=== PATIENT | male | born 1990 | race Caucasian/White ===

== ENCOUNTER 2017-03-16 16:29 | Emergency (ER) | payer OTHER ==
[~2017-03-16] VITALS: Ht 177.8 cm; Wt 71.0 kg
[2017-03-16 16:32] VITALS: Ht 177.8 cm; Wt 71.0 kg
[2017-03-16] MEDS ORDERED: SODIUM CHLORIDE 0.9% 1000ML 1,000 ML IV STA (16:37)
--- NOTE | 2017-03-16 17:01 | DIAGNOSTIC IMAGING REPORT ---
SINGLE VIEW CHEST CLINICAL HISTORY: Weakness. Change in mental status. FINDINGS: An AP, portable, upright chest radiograph is obtained. No prior studies are available for comparison at the time of dictation. The examination is degraded by portable technique, apical lordotic positioning, motion artifact, and patient rotation. The cardiomediastinal silhouette is unremarkable. An accessory azygous fissure is incidentally noted. The lungs and pleural spaces are clear. No pneumothorax is seen. The bony thorax is grossly intact. IMPRESSION: No acute cardiopulmonary abnormality noting a degraded examination. Electronically signed by: Luciano Montemayor M.D. 03/16/2017 4:59 PM Dictated Date/Time: 03/16/2017 4:58 PM
[2017-03-16] MEDS ORDERED: LEVE500T13 PO (17:22)
[2017-03-16] MEDS ORDERED: MIRT15TA2 PO (17:22)
[2017-03-16] MEDS ORDERED: GABA600T PO (17:22)
[2017-03-16 17:26] LABS: BASO % 0.4 %; BASO ABS # 0.04 K/uL (0-0.2); COMPLETE YES; EOS % 1.7 %; HEMATOCRIT 45.7 % (42-52); LYMPH % 16.4 %; LYMPH ABS # 1.46 K/uL (1.2-3.4); MEAN CELL VOLUME 94.2 fL (80-100); MEAN CORPUSCULAR HEMOGLOBIN 32.6 pg (25-34); MEAN CORPUSCULAR HGB CONC 34.6 g/dl (32-36); MEAN PLATELET VOLUME 9.6 fL (7.4-10.4); MONO % 5.6 %; NEUT % 74.9 %; PLATELET COUNT 245 K/uL (130-400); RED BLOOD COUNT 4.85 M/uL (4.7-6.1)
--- NOTE | 2017-03-16 17:26 | DIAGNOSTIC IMAGING REPORT ---
HEAD WITHOUT CONTRAST (CT) CLINICAL HISTORY: 26 years-old Male with EVALUATE ALTERED MENTAL STATUS/WEAKNESS. Acute confusion TECHNIQUE: Multiple axial CT images of the head were obtained without contrast. A dose lowering technique was utilized adhering to the principles of ALARA. CT DOSE: 537.48 mGy.cm COMPARISON: None. FINDINGS: No acute intracranial hemorrhage, midline shift, mass, large territorial ischemia or abnormal extra-axial collection. The calvarium is intact. The paranasal sinuses, mastoid air cells, and middle ear cavities are clear. IMPRESSION: No acute intracranial abnormality. The above report was generated using voice recognition software. It may contain grammatical, syntax or spelling errors. Electronically signed by: Morgan Rodriguez M.D. 03/16/2017 5:25 PM Dictated Date/Time: 03/16/2017 5:22 PM
[2017-03-16 17:33] LABS: PARTIAL THROMBOPLASTIN RATIO 0.9; PROTHROMBIN TIME (PATIENT) 10.9 SECONDS (9.0-12.0)
[2017-03-16 17:51] LABS: ALT/SGPT 42 U/L (12-78); AST/SGOT 24 U/L (15-37); BLOOD UREA NITROGEN 11 mg/dl (7-18); BUN/CREATININE RATIO 11.8 (10-20); CALCIUM 9.2 mg/dl (8.5-10.1); CARBON DIOXIDE 27 mmol/L (21-32); CHLORIDE 104 mmol/L (98-107); CREATININE 0.92 mg/dl (0.60-1.40); GLUCOSE 83 mg/dl (70-99); MAGNESIUM 2.4 mg/dl (1.8-2.4); POTASSIUM 3.6 mmol/L (3.5-5.1); SODIUM 137 mmol/L (136-145)
[2017-03-16 17:52] LABS: URINE APPEARANCE CLEAR (CLEAR); URINE BILIRUBIN NEG (NEG); URINE COLOR YELLOW; URINE EPITHELIAL CELL AUTO 0-5 /lpf (0-5); URINE NITRITE NEG (NEG); URINE SPECIFIC GRAVITY 1.022 (1.000-1.030); UROBILINOGEN NEG (NEG); ZZUR CULT IF INDIC CLEAN CATCH NO
[2017-03-16 17:53] LABS: MANUAL MICROSCOPIC REQUIRED? NO; REVIEW REQ? NO
[2017-03-16 17:59] LABS: ALKALINE PHOSPHATASE 152 U/L (45-117); CKMB/CK RATIO 0.5 (0-3.0)
--- NOTE | 2017-03-16 18:06 | EMERGENCY ROOM VISIT NOTE ---
History Report prepared by Russellibchristopher: Dc Peters Under the Supervision of: Dr. Pako Crawley D.O. First contact with patient: 16:36 Chief Complaint: ILLNESS Stated Complaint: DONT FEEL RIGHT - CONFUSION - SEIZURES History of Present Illness The patient is a 26 year old male who presents to the Emergency Room with complaints of an episode of confusion occurring shortly prior to arrival. His symptoms began after returning home from work. Per father, the patient had an episode of confusion where he did not know where he was or who he was talking to. He states that the patient has been reserved recently, and has spent a lot of time alone in his room. The patient states that his symptoms have resolved and he currently feels normal. He denies nausea, vomiting, fevers, or cold-like symptoms. He is on Keppra and Gabapentin for seizures. The patient had no witnessed seizure-like activity, but he was alone prior to his episode of confusion. He does not believe he had a seizure, because he feels that he remembers more than he normally would following a seizure. Source of History: patient Onset: Shortly prior to arrival Quality: other (confusion) Timing: other (episode) Associated Symptoms: No fevers, No nausea, No vomiting Review of Systems See HPI for pertinent positives & negatives. A total of 10 systems reviewed and were otherwise negative. Past Medical & Surgical Medical Problems: (1) Seizure Family History No pertinent family history stated. Social History Smoking Status: Current Every Day Smoker Housing Status: lives with family Occupation Status: employed Current/Historical Medications Scheduled Gabapentin (Neurontin), 600 MG PO BID Levetiracetam (Keppra), 500 MG PO BID Mirtazapine Soltab (Remeron Soltab), 15 MG PO HS Allergies Coded Allergies: No Known Allergies (Unverified , 03/16/17) Physical Exam Vital Signs Date Time Temp Pulse Resp B/P (MAP) Pulse Ox O2 Delivery O2 Flow Rate FiO2 03/16/17 18:04 102 03/16/17 16:32 37.1 99 18 133/75 97 Room Air Physical Exam CONSTITUTIONAL/VITAL SIGNS: Reviewed / noted above. GENERAL: Non-toxic in appearance. INTEGUMENTARY: Warm, dry, and [place]. HEAD: Normocephalic. EYES: without scleral icterus or trauma. ENT/OROPHARYNX: clear and moist. LYMPHADENOPATHY/NECK: Is supple without lymphadenopathy or meningismus. RESPIRATORY: Lungs clear and equal. CARDIOVASCULAR: Regular rate and rhythm. GI/ABDOMEN: Soft and nontender. No organomegaly or pulsatile mass. No rebound or guarding. Normal bowel sounds. EXTREMITIES: Warm and well perfused. BACK: No CVA tenderness. NEUROLOGICAL: Intact without focal deficits. PSYCHIATRIC: normal affect. MUSCULOSKELETAL: Normally developed with good muscle tone. Medical Decision & Procedures ER Provider Diagnostic Interpretation: Radiology results as stated below per my review and radiologist interpretation: HEAD WITHOUT CONTRAST (CT) FINDINGS: No acute intracranial hemorrhage, midline shift, mass, large territorial ischemia or abnormal extra-axial collection. The calvarium is intact. The paranasal sinuses, mastoid air cells, and middle ear cavities are clear. IMPRESSION: No acute intracranial abnormality. The above report was generated using voice recognition software. It may contain grammatical, syntax or spelling errors. Electronically signed by: Morgan Rodriguez M.D. 03/16/2017 5:25 PM SINGLE VIEW CHEST FINDINGS: An AP, portable, upright chest radiograph is obtained. No prior studies are available for comparison at the time of dictation. The examination is degraded by portable technique, apical lordotic positioning, motion artifact, and patient rotation. The cardiomediastinal silhouette is unremarkable. An accessory azygous fissure is incidentally noted. The lungs and pleural spaces are clear. No pneumothorax is seen. The bony thorax is grossly intact. IMPRESSION: No acute cardiopulmonary abnormality noting a degraded examination. Electronically signed by: Luciano Montemayor M.D. 03/16/2017 4:59 PM Laboratory Results 03/16/17 17:09 Red Blood Count 4.85, Mean Corpuscular Volume 94.2, Mean Corpuscular Hemoglobin 32.6, Mean Corpuscular Hemoglobin Concent 34.6, Mean Platelet Volume 9.6, Neutrophils (%) (Auto) 74.9, Lymphocytes (%) (Auto) 16.4, Monocytes (%) (Auto) 5.6, Eosinophils (%) (Auto) 1.7, Basophils (%) (Auto) 0.4, Neutrophils # (Auto) 6.66, Lymphocytes # (Auto) 1.46, Monocytes # (Auto) 0.50, Eosinophils # (Auto) 0.15, Basophils # (Auto) 0.04 03/16/17 17:09 Test 03/16/17 17:09 03/16/17 17:29 White Blood Count 8.90 K/uL (4.8-10.8) Red Blood Count 4.85 M/uL (4.7-6.1) Hemoglobin 15.8 g/dL (14.0-18.0) Hematocrit 45.7 % (42-52) Mean Corpuscular Volume 94.2 fL (80-100) Mean Corpuscular Hemoglobin 32.6 pg (25-34) Mean Corpuscular Hemoglobin Concent 34.6 g/dl (32-36) Platelet Count 245 K/uL (130-400) Mean Platelet Volume 9.6 fL (7.4-10.4) Neutrophils (%) (Auto) 74.9 % Lymphocytes (%) (Auto) 16.4 % Monocytes (%) (Auto) 5.6 % Eosinophils (%) (Auto) 1.7 % Basophils (%) (Auto) 0.4 % Neutrophils # (Auto) 6.66 K/uL (1.4-6.5) Lymphocytes # (Auto) 1.46 K/uL (1.2-3.4) Monocytes # (Auto) 0.50 K/uL (0.11-0.59) Eosinophils # (Auto) 0.15 K/uL (0-0.5) Basophils # (Auto) 0.04 K/uL (0-0.2) RDW Standard Deviation 45.7 fL (36.4-46.3) RDW Coefficient of Variation 13.2 % (11.5-14.5) Immature Granulocyte % (Auto) 1.0 % Immature Granulocyte # (Auto) 0.09 K/uL (0.00-0.02) Prothrombin Time 10.9 SECONDS (9.0-12.0) Prothromb Time International Ratio 1.0 (0.9-1.1) Activated Partial Thromboplast Time 23.1 SECONDS (21.0-31.0) Partial Thromboplastin Ratio 0.9 Anion Gap 6.0 mmol/L (3-11) Est Creatinine Clear Calc Drug Dose 121.1 ml/min Estimated GFR () 131.6 Estimated GFR (Non- 113.6 BUN/Creatinine Ratio 11.8 (10-20) Calcium Level 9.2 mg/dl (8.5-10.1) Magnesium Level 2.4 mg/dl (1.8-2.4) Total Bilirubin 0.3 mg/dl (0.2-1) Direct Bilirubin < 0.1 mg/dl (0-0.2) Aspartate Amino Transf (AST/SGOT) 24 U/L (15-37) Alanine Aminotransferase (ALT/SGPT) 42 U/L (12-78) Alkaline Phosphatase 152 U/L (45-117) Total Creatine Kinase 165 U/L (39-308) Creatine Kinase MB 0.8 ng/ml (0.5-3.6) Creatine Kinase MB Ratio 0.5 (0-3.0) Troponin I < 0.015 ng/ml (0-0.045) Total Protein 7.8 gm/dl (6.4-8.2) Albumin 4.6 gm/dl (3.4-5.0) Lipase 85 U/L (73-393) Thyroid Stimulating Hormone (TSH) 1.030 uIu/ml (0.300-4.500) Urine Color YELLOW Urine Appearance CLEAR (CLEAR) Urine pH 5.0 (4.5-7.5) Urine Specific [place] 1.022 (1.000-1.030) Urine Protein NEG (NEG) Urine Glucose (UA) NEG (NEG) Urine Ketones NEG (NEG) Urine Occult Blood NEG (NEG) Urine Nitrite NEG (NEG) Urine Bilirubin NEG (NEG) Urine Urobilinogen NEG (NEG) Urine Leukocyte Esterase NEG (NEG) Urine WBC (Auto) 1-5 /hpf (0-5) Urine RBC (Auto) 0-4 /hpf (0-4) Urine Hyaline Casts (Auto) 0 /lpf (0-5) Urine Epithelial Cells (Auto) 0-5 /lpf (0-5) Urine Bacteria (Auto) NEG (NEG) Laboratory results as stated above per my review. Medications Administered Medications (Trade) Dose Ordered Sig/Samina Route Start Time Stop Time Status Last Admin Dose Admin Sodium Chloride 1,000 ml @ 999 mls/hr Q1H1M STAT IV 03/16/17 16:37 03/16/17 17:37 DC 03/16/17 17:12 999 MLS/HR ECG Indication: altered mental status Rate (beats per minute): 91 Rhythm: normal sinus, sinus with SA Findings: no acute ischemic change, no ectopy ED Course 1645: Previous medical records were reviewed. The patient was evaluated in room B12B. A complete history and physical examination was performed. Ordered Sodium Chloride 1000 ml @ 999 mls/hr IV. 1805: On reevaluation, the patient is resting comfortably. I discussed the results and findings with the patient. He verbalized agreement of the treatment plan. He was discharged home. Medical Decision Differential diagnosis: Etiologies such as metabolic, infection, hypoglycemia, electrolyte abnormalities , cardiac sources, intracerebral event, toxicologic, neurologic, as well as others were entertained. This is a 26-year-old male who presents to the ED with a chief complaint of some brief confusion. The patient left work around 3 PM. He rode his bicycle home and his father got home around 3:30 PM. When the father came home, the patient was asking his father if he was able to go home now. His father states that he was already home. He then told his father that he just wanted to go to his dad's house. His dad was confused with this and the patient states that he felt a little confused as well. He slowly began to realize that he was at home. The patient was brought here for evaluation because the symptoms. He currently denies any symptoms and is awake, alert and oriented. He denies any specific complaints. His father said that he was a little sweaty when this occurred. The patient is on a number of medications for seizures including gabapentin and Keppra. She also takes some medication for depression. He has not had any recent illness, fevers or chills. Denies any trauma. His physical exam was unremarkable and he is oriented 3. His EKG shows a normal sinus rhythm, chest x-ray was negative for acute disease, CT scan of the brain was negative for acute disease. CBC is normal, complete metabolic panel was normal and urine did not show infection or abnormality. The patient was told results the test. He is felt to be stable for discharge and outpatient follow-up. He was given some IV fluids and he is felt to be stable for discharge. The exact cause of the symptoms is unclear. He may been postictal but, the patient denied any seizure-like activity, tongue was without injury and there was no incontinence. Exact cause is unknown. Medication Reconcilliation Current Medication List: was personally reviewed by me Blood Pressure Screening Patient's blood pressure: Normal blood pressure Blood pressure disposition: Did not require urgent referral Impression Primary Impression: Transient confusion Scribe Attestation The scribe's documentation has been prepared under my direction and personally reviewed by me in its entirety. I confirm that the note above accurately reflects all work, treatment, procedures, and medical decision making performed by me. Departure Information Dispostion Home / Self-Care Referrals No Doctor, Assigned (PCP) Patient Instructions My [facility] Additional Instructions Test results today did not reveal a cause for your symptoms. Follow-up with your doctor for further care and evaluation in 1-2 days if symptoms persist. Return to the emergency department for worsening or new symptoms or any concerns. You have been examined and treated today on an emergency basis only. This is not a substitute for, or an effort to provide, complete comprehensive medical care. It is impossible to recognize and treat all injuries or illnesses in a single emergency department visit. It is therefore important that you follow up closely with your doctor. Call as soon as possible for an appointment.
[2017-03-16 18:28] VITALS: BP 122/75; PULSE 83; TEMP 37.1; O2SAT 99
[2017-03-16 18:53] LABS: BENZODIAZEPINE, URINE NEG (NEG); COCAINE,URINE NEG (NEG); PHENCYCLIDINE, URINE NEG (NEG)
== END 2017-03-16 18:29 | disposition home or self-care (01) ==
LOC: C.EDB 16:32
DX: F44.89 Other dissociative and conversion disorders (principal); G40.909 Epilepsy, unspecified, not intractable, without status epilepticus; F17.200 Nicotine dependence, unspecified, uncomplicated; Z79.899 Other long term (current) drug therapy

== ENCOUNTER 2017-06-24 22:24 | Emergency (ER) | payer OTHER ==
[~2017-06-24] VITALS: Ht 180.3 cm; Wt 77.1 kg
[~2017-06-24 22:24] MED LIST: GABA600T PO; LEVE500T13 PO; MIRT15TA2 PO
[2017-06-24 22:28] VITALS: TEMP 36.7; Ht 180.3 cm; Wt 77.1 kg
[2017-06-24] MEDS ORDERED: XYLOCAINE 1%/SOD BICARB 20 ML VIAL INFIL ONE (23:30)
[2017-06-24] MEDS ORDERED: MIRT45TA3 PO (23:30)
[2017-06-24] MEDS ORDERED: VENL150C PO (23:32)
[2017-06-24] MEDS ORDERED: VENL1CAP92 PO (23:34)
[2017-06-25 00:01] VITALS: BP 150/91; PULSE 79; O2SAT 96
--- NOTE | 2017-06-25 00:16 | EMERGENCY ROOM VISIT NOTE ---
History Report prepared by Jong: Gerri Kessler Under the Supervision of: Dr. Javi Taylor D.O. First contact with patient: 23:19 Chief Complaint: LACERATION/CUT (SUT/DERMABOND) Stated Complaint: LACERATION TO LEFT HAND, THUMB Nursing Triage Summary: patient has laceration to left thumb after cutting an onion tonight. 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 He is currently up to date with his tetanus shots. 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 A total of 6 systems reviewed and were otherwise negative. Past Medical & Surgical Medical Problems: (1) Seizure Family History Patient reports no known family medical history. Social History Smoking Status: Current Every Day Smoker Smokeless Tobacco Use: Unknown Housing Status: lives with family Occupation Status: employed Current/Historical Medications Scheduled Gabapentin (Neurontin), 600 MG PO TID Levetiracetam (Keppra), 500 MG PO BID Mirtazapine (Mirtazapine), 45 MG PO HS Venlafaxine Hcl (Effexor Xr), 150 MG PO QAM Venlafaxine Hcl (Effexor Xr), 37.5 MG PO QAM Allergies Coded Allergies: No Known Allergies (Unverified , 03/16/17) Physical Exam Vital Signs Date Time Temp Pulse Resp B/P (MAP) Pulse Ox O2 Delivery O2 Flow Rate FiO2 06/25/17 00:01 79 18 150/91 96 06/24/17 22:28 36.7 87 20 143/85 97 Room Air Physical Exam GENERAL: Patient is awake, alert, and in no acute distress. Patient is resting comfortably and showing no signs of anxiety EYES: The conjunctivae are clear. The pupils are round and reactive. EARS, NOSE, MOUTH AND THROAT: The nose is without any evidence of any deformity. Mucous membranes are moist tongue is midline RESPIRATORY: Normal respiratory effort is noted there is no evidence of wheezing rhonchi or rales CARDIOVASCULAR: Regular rate and rhythm noted there no murmurs rubs or gallops normal S1 normal S2 GASTROINTESTINAL: The abdomen is soft. Bowel sounds are present in all quadrants. Abdomen is nontender MUSCULOSKELETAL/EXTREMITIES: There is no evidence of gross deformity full range of motion is noted in the hips and shoulders SKIN: No pedal edema, flap laceration to the tip of the left thumb approximately 1.5 cm curvilinear NEUROLOGIC: Patient is awake alert and oriented x3 Medical Decision & Procedures Procedure Location: left thumb Total length: 1.5 cm Complexity: low Verbal consent was obtained after the risks and benefits were explained, including but not limited to bleeding, scarring, infection, pain, and bone/joint /nerve damage. At this time, the risks of the procedure are less than the risks of NOT performing the procedure. A time out was taken and the correct patient and site identified. The skin was prepped with betadine. The target area was anesthetized with 4 ml of 1% lidocaine without epinephrine using a digital block. Copious irrigation was performed using normal saline and betadine. The skin was re-prepped with betadine and a sterile field set. The wound was explored for foreign bodies and none found. Examination revealed no injury to deep structures such as tendons, bone, or significant blood vessels. Debridement was not performed. The wound edges were approximated using 7 simple interrupted sutures using 5.0 nylon sutures. Hemostasis and excellent approximation was achieved. Antibacterial ointment and a sterile dressing applied. Detailed wound care instructions and signs and symptoms of infection reviewed with the patient. No complications and the patient tolerated the procedure well. ED Course 2327: The patient was evaluated in room B4. A complete history and physical examination were performed. 2330: Lidocaine HCl 20 ml INFIL 0002: Upon reevaluation, the patient is well appearing. I discussed the results and treatment plan with him. He verbalized agreement of the treatment plan. He was discharged home. Medical Decision Nursing notes reviewed. Differential diagnosis in this patient could include foreign body tendon laceration infection wound infection wound failure and other differential diagnoses were considered. The patient is a 26-year-old male who presented to the emergency department for an evaluation of left thumb injury. The patient suffered a laceration to his left thumb while he was preparing food. This was treated with a digital block and then suture repair. The patient had wound care explained to him. He was encouraged to follow-up with his primary care physician for suture removal but return to the emergency department immediately if signs of infection develop or any other worrisome symptoms begin. Medication Reconcilliation Current Medication List: was personally reviewed by me Blood Pressure Screening Patient's blood pressure: Normal blood pressure Blood pressure disposition: Did not require urgent referral Impression Primary Impression: Laceration of left thumb Scribe Attestation The scribe's documentation has been prepared under my direction and personally reviewed by me in its entirety. I confirm that the note above accurately reflects all work, treatment, procedures, and medical decision making performed by me. Departure Information Dispostion Home / Self-Care Referrals No Doctor, Assigned (PCP) Patient Instructions My [facility] Additional Instructions Continue to put triple antibiotic dressing changes to the thumb lacerations 2-3 times a day. Return to the emergency department if signs of infection develop such as swelling drainage or redness or pain. Follow-up with your family doctor in 7-10 days for suture removal. Continue to use Motrin and Tylenol as directed for pain. Problem Qualifiers Primary Impression: Laceration of left thumb Encounter type: initial encounter Damage to nail status: without damage Foreign body presence: without foreign body Qualified Codes: S61.012A - Laceration without foreign body of left thumb without damage to nail, initial encounter
== END 2017-06-25 00:01 | disposition home or self-care (01) ==
LOC: C.EDB 22:26
DX: S61.011A Laceration without foreign body of right thumb without damage to nail, initial encounter (principal); W26.0XXA Contact with knife, initial encounter; F17.200 Nicotine dependence, unspecified, uncomplicated

== ENCOUNTER 2017-08-13 02:33 | Emergency (ER) | payer OTHER ==
[~2017-08-13] VITALS: Ht 172.7 cm; Wt 74.0 kg
[~2017-08-13 02:33] MED LIST changes: -MIRT15TA2 PO; +MIRT45TA3 PO; +VENL150C PO; +VENL1CAP92 PO
[2017-08-13 02:40] VITALS: TEMP 36.8; Ht 172.7 cm; Wt 74.0 kg
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
[2017-08-13 03:18] VITALS: O2SAT 99
[2017-08-13 03:22] LABS: CREATININE 0.88 mg/dl (0.60-1.40)
[2017-08-13 03:23] LABS: POTASSIUM 3.5 mmol/L (3.5-5.1)
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
[2017-08-13 10:57] VITALS: BP 121/71; PULSE 90; O2SAT 96
--- NOTE | 2017-08-13 15:40 | EMERGENCY ROOM VISIT NOTE ---
ED Visit Note First contact with patient: 09:08 Patient was signed out to me by Chary JACQUES. Please see her dictation for full history and physical. Patient remained stable while in the ED. He did wake up midmorning. He was conversive. He had no further complaints on reexamination. He does not recall what happened last night. He states he is homeless and is staying at [facility]. He previously had significant issues with alcohol and had been recovering and dry. He states last night was his first use of alcohol in quite some time. Alcohol intoxication instructions were reviewed. Maintain hydration. Tylenol and Motrin every 6 hours as needed for discomfort. Avoid alcohol. Follow-up with his PCP as needed. He was sent to [facility] by [employer]. Problem List Medical Problems: (1) Seizure Status: Chronic Current/Historical Medications Scheduled Gabapentin (Neurontin), 600 MG PO TID Levetiracetam (Keppra), 500 MG PO BID Mirtazapine (Mirtazapine), 45 MG PO HS Venlafaxine Hcl (Effexor Xr), 150 MG PO QAM Venlafaxine Hcl (Effexor Xr), 37.5 MG PO QAM Allergies Coded Allergies: No Known Allergies (Unverified , 08/13/17) Vital Signs Date Time Temp Pulse Resp B/P (MAP) Pulse Ox O2 Delivery O2 Flow Rate FiO2 08/13/17 10:57 90 18 121/71 96 08/13/17 10:00 88 16 119/69 95 Room Air 08/13/17 08:39 94 16 111/72 94 Room Air 08/13/17 07:08 84 18 135/65 95 Room Air 08/13/17 06:09 92 08/13/17 06:08 93 20 131/68 96 Room Air 08/13/17 05:02 99 20 123/62 95 Room Air 08/13/17 04:28 102 20 120/70 95 Room Air 08/13/17 03:52 99 20 117/82 95 Room Air 08/13/17 03:18 99 Room Air 08/13/17 02:45 99 Room Air 08/13/17 02:45 110 08/13/17 02:40 36.8 115 20 136/103 99 Room Air Laboratory Results 08/13/17 02:47 Test 08/13/17 02:47 Anion Gap 10.0 mmol/L (3-11) Est Creatinine Clear Calc Drug Dose 122.0 ml/min Estimated GFR () 136.4 Estimated GFR (Non- 117.7 BUN/Creatinine Ratio 9.9 (10-20) Calcium Level 9.0 mg/dl (8.5-10.1) Ethyl Alcohol mg/dL 250.0 mg/dl (0-3) Departure Information Impression Primary Impression: Alcoholic intoxication Dispostion Home / Self-Care Condition GOOD Referrals No Doctor, Assigned (PCP) Forms ALCOHOL OVERDOSE (21 OR Older), HOME CARE DOCUMENTATION FORM, MOTRIN USE, TYLENOL USE, IMPORTANT VISIT INFORMATION Patient Instructions My [facility] Additional Instructions You were evaluated in emergency department for intoxication. This is a sign of Alcohol Abuse and should not be taken lightly. You had a blood alcohol level that was significantly elevated. Over the next 24 hours keep well hydrated and eat light meals. Don't drink any more alcohol. This is important. Please discuss this visit with your Primary Care Provider, [facility] and/or your loved ones. Call 911 or return to Emergency Department if you develop: Passing out, difficulty breathing, many episodes of vomiting, blood in vomit or stool, abdominal pain, fevers, or other severe symptoms. We are always here to help if you feel you need further evaluation or treatment.
== END 2017-08-13 10:59 | disposition home or self-care (01) ==
LOC: EDBD 02:33 → C.EDA 02:35
DX: F10.920 Alcohol use, unspecified with intoxication, uncomplicated (principal); Y90.8 Blood alcohol level of 240 mg/100 ml or more; R04.0 Epistaxis; S40.811A Abrasion of right upper arm, initial encounter; X58.XXXA Exposure to other specified factors, initial encounter; G40.909 Epilepsy, unspecified, not intractable, without status epilepticus

== ENCOUNTER 2024-07-11 18:42 | Inpatient (IN) ==
--- NOTE | 2024-07-11 19:39 | CT Scan Report ---
EXAM: CT Head and Maxillofacial Without Intravenous Contrast INDICATION: Trauma TECHNIQUE: Axial computed tomography images of the head/brain and face without intravenous contrast. Sagittal and coronal reformatted images were created and reviewed. This CT exam was performed using one or more of the following dose reduction techniques: automated exposure control, adjustment of the mA and/or kV according to patient size, and/or use of iterative reconstruction technique. COMPARISON: CT head 05/09/2022 FINDINGS: Brain and extra-axial spaces: No abnormality noted. No hemorrhage. No significant white matter disease. No edema. No ventriculomegaly. Bones/joints: Acute nondisplaced fracture left mandible anterior to the angle. Intact well-seated fixation hardware bilateral mandible. Soft tissues: There is soft tissue contusion and mild hematoma along the left mandible. There is some scattered gas along the left mandible typical of an open fracture. Sinuses: There is a small retention cyst or polyp in the left sphenoid sinus. No sinus fluid. Mastoid air cells: No mastoid effusion. Orbits: No significant abnormality noted. IMPRESSION: 1. Acute open, nondisplaced fracture left mandible anterior to the angle. 2. Negative brain CT. ACT 112: N/A Electronically signed by Pao Hutchinson 07-11-2024 7:38 PM
--- NOTE | 2024-07-11 19:45 | CT Scan Report ---
EXAM: CT Cervical Spine Without Intravenous Contrast INDICATION: Trauma TECHNIQUE: Axial computed tomography images of the cervical spine without intravenous contrast. Sagittal and coronal reformatted images were created and reviewed. This CT exam was performed using one or more of the following dose reduction techniques: automated exposure control, adjustment of the mA and/or kV according to patient size, and/or use of iterative reconstruction technique. COMPARISON: No relevant prior studies available. FINDINGS: Limitations: None. Vertebrae: There is straightening of the normal cervical curvature. There is multilevel minimal facet arthrosis. Mild spondylosis and uncal spurring noted at C4-T1. No fracture or traumatic subluxation. Discs/spinal canal/neural foramina: There is moderate disc space narrowing C4-C5 and C6-C7. There is mild to moderate ventral and foraminal stenosis C4-C5, C5-C6 and C6-C7. Soft tissues: Soft tissue gas and contusion noted along the left mandible. Other bones: There is a nondisplaced fracture just anterior to the left mandibular angle. Lung apices: No significant abnormality noted. IMPRESSION: 1. Cervical degenerative changes. No cervical fracture. 2. There is an open, nondisplaced fracture just anterior to the left mandibular angle. Findings discussed by phone with Dr. Blevins at approximately 7:40 PM 07/11/2024. ACT 112: N/A Electronically signed by Pao Hutchinson 07-11-2024 7:45 PM
[2024-07-11] MEDS: AMPICILLIN/SULBACTAM SOD 3,000 MG/100 ML BAG IV STA (20:04)
[2024-07-11] MEDS: DIPHTHER/TETAN/PERTUS Vaccine (Tdap, Adol/Adult) 0.5mL IM ONE (20:04)
[2024-07-11 20:31] LABS: Appearance Urine Clear (Clear); Bilirubin Urine Negative (Negative); Blood Urine Negative (Negative); Color Urine Yellow; Glucose Urine UA Negative (Negative); Ketones Urine Negative (Negative); Leukocyte Esterase Urine Negative (Negative); Nitrite Urine Negative (Negative); Protein Urine Negative (Negative); Specific Gravity Urine 1.004 (1.000-1.030); Urobilinogen Urine Negative (Negative)
[2024-07-11 20:32] LABS: Basophils # (auto) 0.07 K/uL (0.00-0.20); Basophils % (auto) 0.7 %; Eosinophils # (auto) 0.26 K/uL (0.00-0.50); Eosinophils % (auto) 2.5 %; Hematocrit (blood only) 42.3 % (42.0-52.0); Hemoglobin 15.1 g/dl (14.0-18.0); Immature Granulocytes # (auto) 0.08 K/uL (0.01-0.20); Immature Granulocytes % (auto) 0.8 %; Lymphocytes # (auto) 2.46 K/uL (1.20-3.40); Mean Corpuscular Hemoglobin 32.2 pg (25.0-34.0); Mean Corpuscular Hgb Conc 35.7 g/dL (32.0-36.0); Mean Corpuscular Volume 90.2 fL (80.0-100.0); Monocytes # (auto) 0.63 K/uL (0.11-0.59); Monocytes % (auto) 6.1 %; Neutrophils # (auto) 6.77 K/uL (1.40-6.50); Neutrophils % (auto) 65.9 %; Platelet Count 319 K/uL (130-400); RDW Standard Deviation 42.6 fL (36.4-46.3); Red Blood Count 4.69 M/uL (4.70-6.10); White Blood Count 10.27 K/ul (4.8-10.8)
[2024-07-11] MEDS: MoRPHine SULFATE 4 MG/ML 1 ML CARP\\VIAL IV STA ×2 (20:49→22:08)
[2024-07-11] MEDS: ONDANSETRON INJ 2 MG/ML 2 ML VIAL IV STA (20:49)
[2024-07-11 20:53] LABS: Albumin Globulin Ratio 1.5 (0.9-2); Albumin Level 4.8 gm/dl (3.4-5.0); Bilirubin,Total 0.5 mg/dl (0.2-1.0); Calcium 9.7 mg/dl (8.6-10.3); Globulin 3.2 gm/dl (2.5-4.0); Potassium 3.2 mmol/L (3.5-5.1)
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
[2024-07-11 21:21] LABS: Partial Thromboplastin Time 26 Seconds (21-31); Prothrombin Time 10.5 Seconds (9.0-12.0)
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
[2024-07-11] MEDS: levETIRAcetam 500 MG TAB PO STA (22:41)
[2024-07-11] MEDS: HYDROmorphone INJ 0.5 MG/0.5 ML SYR IV STA (22:41)
[2024-07-11] MEDS: ARIPiprazole 5 MG TAB PO STA (22:41)
[2024-07-11] MEDS ORDERED: DOCUSATE SODIUM 100 MG CAP PO PRN (22:45)
[2024-07-11] MEDS ORDERED: ONDANSETRON INJ 2 MG/ML 2 ML VIAL IV PRN (22:45)
[2024-07-11] MEDS ORDERED: POLYETHYLENE (MIRALAX) 17 GM PACK PO PRN (22:45)
[2024-07-12] MEDS: NICOTINE 21 MG/24 HR TDSY TD SCH (00:53)
[2024-07-12] MEDS: LACTATED RINGER'S 1,000 ML IV SCH (00:54)
[2024-07-12] MEDS: AMPICILLIN/SULBACTAM SOD 3,000 MG/100 ML BAG IV SCH (01:01)
[2024-07-12 03:56] LABS: Hematocrit (blood only) 42.3 % (42.0-52.0); Hemoglobin 15.1 g/dl (14.0-18.0); Mean Corpuscular Hemoglobin 32.5 pg (25.0-34.0); Mean Corpuscular Hgb Conc 35.7 g/dL (32.0-36.0); Mean Corpuscular Volume 91.2 fL (80.0-100.0); Platelet Count 291 K/uL (130-400); RDW Standard Deviation 43.7 fL (36.4-46.3); Red Blood Count 4.64 M/uL (4.70-6.10)
[2024-07-12 04:13] LABS: BUN Creatinine Ratio 9.2 (10-20); Calcium 8.7 mg/dl (8.6-10.3); Creatinine Clr Calc Pharmacy 186.4 ml/min; Potassium 3.5 mmol/L (3.5-5.1)
--- NOTE | 2024-07-12 07:55 | Electrocardiogram Report ---
Test Reason : Blood Pressure : */* mmHG Vent. Rate : 107 BPM Atrial Rate : 107 BPM P-R Int : 162 ms QRS Dur : 104 ms QT Int : 332 ms P-R-T Axes : 56 65 11 degrees QTcB Int : 443 ms Sinus tachycardia Diffuse Minor Nonspecific T wave abnormality Abnormal ECG When compared with ECG of 23-Jun-2022 18:06, HR has increased by 21 bpm Nonspecific T wave abnormality now present Confirmed by Melvin Rich ([id number]) on 07/12/2024 7:55:16 AM Referred By: REFERRED SELF Confirmed By: Melvin Rich
[2024-07-12] MEDS: levETIRAcetam 500 MG TAB PO SCH (08:05)
[2024-07-12] MEDS: VENLAFAXINE HCL XR 150 MG CAPXR PO SCH (08:05)
[2024-07-12] MEDS: VENLAFAXINE HCL XR 75 MG CAPXR PO SCH (08:05)
[2024-07-12] MEDS: amLODIPine BESYLATE 5 MG TAB PO SCH (08:05)
[2024-07-12] MEDS: GABAPENTIN 800 MG TAB PO SCH (08:05)
[2024-07-12] MEDS: HYDROmorphone INJ 0.5 MG/0.5 ML SYR IV PRN (08:07)
[2024-07-12] MEDS ORDERED: CHLORHEXIDINE GLUCONATE 0.12% 480 ML MT PRN (09:59)
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
[2024-07-12] MEDS: ARIPiprazole 5 MG TAB PO SCH (20:56)
[2024-07-12] MEDS: MIRTAZAPINE SOLTAB 15 MG PO SCH (20:56)
[2024-07-13] MEDS ORDERED: LIDOCAINE 2% 2 ML VIAL/AMP(20MG/ML) INFIL ONE (13:37)
[2024-07-13] MEDS ORDERED: ONDANSETRON INJ 2 MG/ML 2 ML VIAL ONE (13:37)
[2024-07-13] MEDS ORDERED: DEXAMETHASONE SOD INJ 4 MG/ML VIAL ONE (13:38)
[2024-07-13] MEDS ORDERED: PROPOFOL IV EMULSION 10 MG/ML 20 ML VIAL IV ONE (13:38)
[2024-07-13] MEDS ORDERED: MIDAZOLAM HCL 1 MG/ML 2ML VIAL ONE (13:38)
[2024-07-13] MEDS ORDERED: fentaNYL citrate PF 100 MCG/2 ML VIAL ONE (13:38)
[2024-07-13] MEDS ORDERED: ROCURONIUM BROMIDE 10 MG/ML 5 ML VIAL IV ONE ×3 (13:40→17:51)
--- NOTE | 2024-07-13 13:48 | Anesthesiology Consultation ---
Date of Service July 13, 2024 Assessment & Plan Chart Review Chart Review: Acceptable Risk for Surgery and Patient NOT seen in Pre Admission Testing Consults Requested none History Surgery Operation Date: 07/13/24 13:15 Proposed Procedures p Open Versus Closed Reduction Mandible Fracture - Jere Kay, QING Height/Weight Height: 5 ft 11 in Weight: 92.8 kg Allergies Allergy/AdvReac Type Severity Reaction Status Date / Time No Known Allergies Allergy Verified 06/17/23 09:05 Medications Home Medications Medication Instructions Recorded Confirmed Last Taken aripiprazole 5 mg tablet 5 mg PO HS 05/09/22 07/11/24 06/22/22 gabapentin 800 mg tablet 800 mg PO TID 05/09/22 07/11/24 06/23/22 08:00 mirtazapine 45 mg tablet 45 mg PO HS 05/09/22 07/11/24 06/22/22 venlafaxine 150 mg 150 mg PO QAM 05/09/22 07/11/24 06/23/22 capsule,extended release 24 hr venlafaxine 75 mg capsule,extended 75 mg PO QAM 05/09/22 07/11/24 06/23/22 release 24 hr amlodipine 10 mg tablet 10 mg PO DAILY #30 tabs 12/08/23 07/11/24 Unknown levetiracetam 500 mg tablet 500 mg PO Q12H #30 tabs 12/22/23 07/11/24 07/11/24 11:00 (Debbie) clindamycin phosphate 1 % topical 1 applic topical DAILY PRN acne 07/12/24 07/12/24 Unknown solution tretinoin 0.1 % topical cream 1 applic topical Q OTHER DAY PRN 07/12/24 07/12/24 Unknown acne Active Medications Generic Name Dose Route Start Last Admin Trade Name Freq PRN Reason Stop Dose Admin Amlodipine Besylate 10 mg 07/12/24 09:00 07/13/24 09:05 Amlodipine Besylate 5 Mg Tab PO 08/11/24 08:59 10 mg DAILY SHAMEKA Administration Aripiprazole 5 mg 07/12/24 21:00 07/12/24 20:56 Aripiprazole 5 Mg Tab PO 08/11/24 20:59 5 mg HS SHAMEKA Administration Gabapentin 800 mg 07/12/24 09:00 07/13/24 09:05 Gabapentin 800 Mg Tab PO 08/11/24 08:59 800 mg TID SHAMEKA Administration Hydromorphone HCl 0.5 mg 07/11/24 22:45 07/13/24 09:11 Hydromorphone Inj 0.5 Mg/0.5 Ml Syr IV 07/25/24 22:44 0.5 mg Q3H PRN Administration Pain (6,7,8,9,10) Ampicillin Sodium/Sulbactam Sodium 3,000 mg in 100 mls @ 200 mls/hr 07/12/24 02:00 07/13/24 09:46 Unasyn IV 07/22/24 01:59 Infused Q6H SHAMEKA Infusion Levetiracetam 500 mg 07/12/24 09:00 07/13/24 09:05 Levetiracetam 500 Mg Tab PO 08/11/24 08:59 500 mg Q12H SHAMEKA Administration Mirtazapine 45 mg 07/12/24 21:00 07/12/24 20:56 Mirtazapine Soltab 15 Mg PO 08/11/24 20:59 45 mg HS SHAMEKA Administration Miscellaneous 1 each 07/12/24 08:59 07/13/24 09:04 Remove Nicoderm Patch N/A 08/11/24 08:58 1 each DAILY@0859 SHAMEKA Administration Nicotine 1 patch 07/11/24 22:45 07/13/24 09:05 Nicotine 21 Mg/24 Hr Tdsy TD 08/10/24 22:44 1 patch QAM SHAMEKA Administration Venlafaxine HCl 75 mg 07/12/24 09:00 07/13/24 09:05 Venlafaxine Hcl Xr 75 Mg Capxr PO 08/11/24 08:59 75 mg QAM SHAMEKA Administration Venlafaxine HCl 150 mg 07/12/24 09:00 07/13/24 09:06 Venlafaxine Hcl Xr 150 Mg Capxr PO 08/11/24 08:59 150 mg QAM SHAMEKA Administration Past Medical History Medical History Seizure disorder Past Family History Family History Other No pertinent family history in first degree relatives Past Surgical History Surgical History History of mandibular surgery Social History Smoking Status: Current every day smoker Smoking cigarettes per day: 10 Do You Dip or Chew Tobacco: No Hx Alcohol Use: Yes Alcohol type: beer alcohol intake frequency: a few times a week Hx Substance Use: No Physical Exam Vital Signs Last Vital Signs Temp 36.8 C 07/13/24 07:43 Pulse 82 07/13/24 07:43 Resp 18 07/13/24 07:43 BP 139/92 07/13/24 07:43 Pulse Ox 97 07/13/24 07:43 O2 Del Method Room Air 07/13/24 07:43 O2 Flow Rate 0 07/11/24 18:46 Testing Laboratory Results 07/12/24 03:41 07/12/24 03:41 PT 10.5 Seconds (9.0-12.0) 07/11/24 20:00 INR 1.0 (0.9-1.1) 07/11/24 20:00 APTT 26 Seconds (21-31) 07/11/24 20:00 Urine Color Yellow 07/11/24 19:50 Urine Appearance Clear (Clear) 07/11/24 19:50 Urine pH 6.0 (4.5-7.5) 07/11/24 19:50 Ur Specific [place] 1.004 (1.000-1.030) 07/11/24 19:50 Urine Protein Negative (Negative) 07/11/24 19:50 Urine Glucose (UA) Negative (Negative) 07/11/24 19:50 Urine Ketones Negative (Negative) 07/11/24 19:50 Urine Nitrite Negative (Negative) 07/11/24 19:50 Ur Leukocyte Esterase Negative (Negative) 07/11/24 19:50 Electrocardiogram Date: 07/11/24 Findings: + ST @ (107)
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
--- NOTE | 2024-07-13 14:23 | History & Physical Bridge Note ---
Date of Service July 13, 2024 History & Physical Bridge Note I have examined the patient, reviewed the History & Physical and in the interval since the performance of the History & Physical I have noted the following changes of clinical significance: no changes noted OK for the planned procedures.
[2024-07-13] MEDS: LACTATED RINGER'S 1,000 ML IV SCH (14:25)
[2024-07-13] MEDS ORDERED: ATROPINE SULFATE 0.1 MG/ML 10ML SYR IV PRN (14:33)
[2024-07-13] MEDS ORDERED: ePHEDrine sulfate 50 MG/ML AMP IV PRN (14:33)
[2024-07-13] MEDS ORDERED: fentaNYL citrate PF 100 MCG/2 ML VIAL IV PRN (14:33)
[2024-07-13] MEDS ORDERED: HYDROmorphone INJ 1 MG/ML SYRINGE IV PRN (14:33)
[2024-07-13] MEDS ORDERED: ONDANSETRON INJ 2 MG/ML 2 ML VIAL IV PRN ×2 (14:33→17:12)
[2024-07-13] MEDS ORDERED: GLYCOPYRROLATE 0.2 MG/ML VIAL ONE (14:54)
[2024-07-13] MEDS ORDERED: HYDROmorphone INJ 2 MG/ML SYR/VIAL ONE (15:20)
[2024-07-13] MEDS: OXYMETAZOLINE 0.05% 30 ML BTL ONE (16:01)
[2024-07-13] MEDS ORDERED: SUGAMMADEX SODIUM 200 MG/2 ML VIAL IV ONE (16:29)
[2024-07-13] MEDS: BUPIVACAINE/EPINEPHRINE 0.5% 1:200,000 1.8 ML CARP ONE (16:50)
[2024-07-13] MEDS ORDERED: ACETAMINOPHEN SUSP 325 MG/10.15 ML UDC PO PRN (17:12)
[2024-07-13] MEDS ORDERED: HYDROcodone/APAP 7.5/325mg/15mL ELIX 15 ML/CUP PO PRN (17:12)
--- NOTE | 2024-07-13 17:20 | Post Operative Brief Note ---
PG Immediate Post Op with CF Date of Surgery July 13, 2024 Pre & Post Diagnosis Operation Date: 07/13/24 13:15 Pre-Op Diagnosis: Fracture, mandibular Post-Op Diagnosis: Fracture, mandibular I identified the patient and participated in the time-out.: Yes Procedure Operation Date: 07/13/24 13:15 Actual Procedures p Open Reduction Mandible Fracture(Not Applicable) - Jere Kay DMD Surgeon Jere Kay DMD [employer] Tutor none Estimated Blood Loss 10 Findings Consistent with Post-Op Diagnosis fracture of the left mandibular angle Specimens Specimen Description: none per surgeon Anesthesia Type General Complications none Disposition Accompanied Patient To Recovery: Yes
--- NOTE | 2024-07-13 18:02 | XRay Report ---
3 views of the mandible are submitted for review. Comparison is made to the CT dated 07/11/2024 Findings: Again seen is a fracture of the left mandibular angle and body with slight distraction. Multiple mandibular fixation plates are again seen. There is no definite sign of instrumentation failure No definite TMJ subluxation or dislocation is seen. No significant arthritic changes are noted. No other osseous abnormality is identified. There are no radiopaque foreign bodies. Impression: 1. Unchanged fracture of the left mandibular angle and body 2. Multiple mandibular fixation plates Electronically signed by Henrique Metzger 07-13-2024 6:01 PM
--- NOTE | 2024-07-13 18:07 | Anesthesiology Progress Note ---
Date of Service July 13, 2024 Anesthesia Post Procedure Vital Signs Vital Signs: Temp Pulse Pulse Resp BP BP Pulse Ox 07/13/24 18:00 97.5 F L 93 H 18 152/103 H 94 07/13/24 17:50 96 H 16 140/106 H 95 07/13/24 17:40 100 H 16 153/105 H 98 07/13/24 17:30 97.3 F L 98 H 16 136/111 H 98 07/13/24 14:15 98.4 F 95 H 20 145/96 H 98 07/13/24 07:43 98.2 F 82 18 139/92 97 07/12/24 21:09 98.1 F 76 16 148/89 H 98 O2 Del Method O2 Flow Rate 07/13/24 18:00 Room Air 07/13/24 17:50 Oxymask 2 07/13/24 17:40 Oxymask 2 07/13/24 17:30 Oxymask 4 07/13/24 14:15 Room Air 07/13/24 07:43 Room Air 07/12/24 21:09 Room Air Pain Intensity Jaw: Pain Intensity: 8 Transfer of Care Handoff Completed per policy Notes Mental Status: alert / awake / arousable and participated in evaluation Patient Amnestic to Procedure: Yes Nausea / Vomiting: adequately controlled Pain: adequately controlled Airway Patency, RR, SpO2: stable & adequate BP & HR: stable & adequate Hydration State: stable & adequate Anesthetic Complications: no major complications apparent and Pt Satisfied with anesthetic care
[2024-07-13] MEDS: NEOMYCIN/POLYMYX/BACITR OINT 15 GM TUBE ONE (18:41)
[2024-07-13] MEDS: HYDROcodone/APAP 7.5/325mg/15mL ELIX 15 ML/CUP PO PRN (18:45)
[2024-07-13] MEDS: dexAMETHasone 6 MG in SYRINGE 0 ML IV SCH (19:46)
[2024-07-13] MEDS: KETOROLAC 30 MG/ML VIAL IV SCH (19:46)
--- NOTE | 2024-07-13 20:51 | Pharmacy Report ---
Pharmacy Progress Note - Date of Service July 13, 2024 - Progress Note Dr. Kay requested pharmacy to look at patients home medications list and see which meds can be crushed and what other options exist if can't be crushed: Amlodipine tablets: can be crushed Aripiprazole tablets: can be crushed as long as they are the regular IR formulation, if thats not an option then there is aripiprazole oral liquid available Gabapentin tablets: can be crushed if they are the tablets, if its capsules most of them can be opened and contents sprinkled into liquid/soft puree food. Gabapentin is also available in oral liquid formulation Levetiracetam tablets: can be crushed if regular IR tablets but recommended against due to bad taste. This is also available as an oral liquid formulation Mirtazapine tablets: can be crushed if regular IR tablets; available as ODT tablet that can disolve orally with minimal/no chewing effort Ropinirole tablets: can be crushed if regular IR tablets Venlafaxine ER capsules, contents of capsule may be opened and sprinkled on applesauce and swallowed right away with glass of water Thank you for engaging the clinical pharmacy consult service in the care of this patient. Please let us know if we can be of further assistance.
[2024-07-13] MEDS: TRIAMCINOLONE ACET 0.1% OINT 15 GM TUBE EXT SCH (21:09)
[2024-07-13] MEDS: CHLORHEXIDINE GLUCONATE 0.12% 480 ML MT SCH (21:10)
[2024-07-13] MEDS: ARIPIprazole 1 MG/ML ORAL SOLN 150 ML BTL PO SCH (21:10)
[2024-07-13] MEDS: GABAPENTIN 250 MG/5 ML 470 ML BTL PO SCH (21:10)
[2024-07-13] MEDS: OXYMETAZOLINE 0.05% 30 ML BTL PRN (21:13)
[2024-07-13] MEDS: MoRPHine SULFATE 4 MG/ML 1 ML CARP\\VIAL IV PRN (22:10)
[2024-07-13] MEDS: LORazepam 2 MG/1 ML VIAL IV PRN (23:24)
[2024-07-14 08:20] VITALS: BP 146/98; PULSE 100; RESP 16; TEMP 97.3; O2SAT 95
[2024-07-14] MEDS: METOPROLOL SUCC 25MG EXT REL TAB PO SCH (09:19)
[2024-07-14] MEDS: HYDROmorphone INJ 0.5 MG/0.5 ML SYR IV PRN (09:25)
--- NOTE | 2024-07-14 11:04 | Oral/Maxillofacial Progress Nt ---
Date of Service July 14, 2024 Assessment & Plan Admission and Anticipated Discharge Date Admission Date: July 11, 2024 Subjective Jaw Fracture repair surgery post op note at 24 hours VS stable OK for discharge this AM Excellent result, Fixation stable, patient tolerating very well Tissue tone, gingival tissue--excellent Occlusion very stable No nasal congestion or bleeding, septum well positioned. No sinus issues Facial alignment excellent Stressed--oral care, avoid pulling on wires, diet, medications, follow up, avoid smoking Reviewed post op care--diet, oral care, carry wire cutters and activities. Next appointment set up for: July 19 at 4 pm office Overall excellent result from recent jaw fracture repair surgery I reviewed drug management --see below Amlodipine tablets: can be crushed Aripiprazole tablets: can be crushed as long as they are the regular IR formulation, if thats not an option then there is aripiprazole oral liquid available Gabapentin tablets: can be crushed if they are the tablets, if its capsules most of them can be opened and contents sprinkled into liquid/soft puree food. Gabapentin is also available in oral liquid formulation Levetiracetam tablets: can be crushed if regular IR tablets but recommended ag ainst due to bad taste. This is also available as an oral liquid formulation Mirtazapine tablets: can be crushed if regular IR tablets; available as ODT tablet that can disolve orally with minimal/no chewing effort Ropinirole tablets: can be crushed if regular IR tablets Venlafaxine ER capsules, contents of capsule may be opened and sprinkled on applesauce and swallowed right away with glass of water Results & Data Vital Signs (Past 12 Hours) Vital Signs Temp Pulse Resp BP Pulse Ox O2 Del Method 07/14/24 08:19 36.3 C L 100 H 16 146/98 H 95 Room Air 07/14/24 04:06 36.9 C 88 18 137/92 96 Room Air 07/13/24 23:29 36.5 C 101 H 18 146/90 H 94 Room Air PG Care Time/CCT Total # of Minutes Spent Total Time Spent with Patient: Total time spent is greater than 50% in coordination of care (as documented) at patient's floor/unit and/or counseling patient: Coding Level of Care Code 13207 SUB INP/OBS CARE 06/02MIN
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
--- NOTE | 2024-07-15 12:02 | Operative Report ---
PG Post Operative Report Pre & Post Diagnosis Operation Date: 07/13/24 13:15 Pre-Op Diagnosis: Fracture, mandibular Post-Op Diagnosis: Fracture, mandibular I identified the patient and participated in the time-out.: Yes Procedure Operation Date: 07/13/24 13:15 Actual Procedures p Open Reduction Mandible Fracture(Not Applicable) - Jere Kay DMD Surgeon Jere Kay, QING Instrumentation Engineering Technician none Estimated Blood Loss 10 Findings Consistent with Post-Op Diagnosis Specimens none Drains none Anesthesia Type General Complications none Disposition Accompanied Patient To Recovery: Yes Indications fracture of left mandibular angle edentulous upper Description of Procedure ADMITTING DIAGNOSES: Non Displaced mandibular angle fracture CPT 61942-Enwbdw treatment of mandibular fracture with interdental fixation (KLS [place] Hybrid archbars lower) CPT 43967-Cybhrf repair of oral laceration (1.5 cm) ICD 10 S02.652A Closed reduction of left angle fracture OPERATION: Closed reduction of left mandibular angle fracture with placement of Hybrid arch bars lower (KLS Albert) and jaw fixation. Placement of osseous fixation wires ( bilateral pyriform rim)and placement of surgical upper denture splint OPERATION IN DETAIL: After this patient was cleared to undergo general, The patient was placed under general anesthesia via a nasotracheal intubation. After an appropriate time-out was taken to ensure that we had Morgan Ferreira in our operating room with the proper equipment. After everyone agreed, the operation began. The patient was deeply anesthetized and the tubes were secured. The patient was prepped and draped in the usual manner. Given the nature of the fracture, a closed functional approach will be used. Hybrid Arch bars will be placed on the lower while the upper denture will be secured with 2 screws and bilateral pyriform wires for interdental fixation for a total of 5-6 weeks before the transition to dental elastics. Placement of [employer] [place] Hybrid Arch Bars Lower teeth: Local anesthesia in the form of Marcaine with a vasoconstrictor, approximately 2 carpules of the local anesthesia were injected. The fractured was reduced and the occlusion was checked. The arch bars were placed on the lower arch with the standard hybrid arch bar protocol using 6 and 8 mm [employer] [place] screws. 5 screws were used to secure the arch bar. The roots were avoided. The tissue behind the # 18 tooth where the fracture was was irrigated with over 100 cc of NS and Peridex. The laceration (1.5 cm simple oral mucosal repair) was repaired with a 2 -0 Vicryl suture-a water tight closure was obtained. Placement Bilateral pyriform wires and secure upper denture to the maxilla Local anesthesia was used Marcaine x 2 An electrocautery instrument was used to make an incision high in the mucobuccal fold between the attached gingiva and the alveolar mucosa. This was carefully done with electrocautery instrument. Once the mucosa was incised, I incised through the muscular layer and then finally the periosteum. Now using a periosteal elevator, I was able to carefully reflect the mucoperiosteal tissue superiorly to the base of the nose and the pyriform process.I then turned my attention to the nose area and carefully reflected the mucoperiosteal tissue around the piriform rim and lateral aspects of the nose. Bleeding was very well controlled. Now with a periosteal elevator to protect the nasal tissue i used a fissure bur to make a hole in the thickest aspect of the pyriform rim on both sides. I now passed a double strand 25 g ssw for obtaining skeletal fixation for the mandibular fracture. Once this was completed all bleeding was controlled, the site was irrigated and the incision was closed with a running 4-0 Vicryl suture. The upper denture was firmly placed and the occlusion was checked, the denture was now secured with 2 13 mm long 2 mm screws. Please not that the upper soft tissue had a lot of epulis and swollen tissue. This will need to be addressed in the future. I removed the throat packs, irrigated the oral cavity and suctioned it dry and passed an OG tube. I now turned my attention to setting the occlusion. I was able to carefully place the mandible into proper inter-dental relationship with the maxillary secured denture.. Using the bilateral pyriform rim wires I placed the patient into a fixated position with 24 g wire. achieving skeletal fixation with the pyriform wires and the Hybrid arch bar below. I was able to obtain an ideal occlusion of the teeth/upper denture. Recovery Phase: At this time the sponge and instruments count was correct. The patient was allowed to recover in the usual manner and then once fully recovered moved to the recovery room, Post op plans: My plan is to keep the patient in a fixated position for 5-6 weeks then transition to a modified exercise program with dental elastics and soft diet for the next 1-2 weeks. We will keep the arch bars and pyriform wires in place for a total of 7-8 weeks, then return him to the operating room for removal of the maxillary/mandibular fixation devices. Outcome: Transported in stable condition to post anesthesia recovery area. The patient tolerated the surgical procedure and anesthesia extremely well and I anticipate an uneventful postoperative course. I will follow the patient in my office, Rx and instructions will be given upon discharge. I attest to the content of the Intraoperative Record and any orders documented therein. Any exceptions are noted below.
== END 2024-07-14 13:06 | disposition home or self-care (01) | DRG 142 ==
LOC: ED 18:42 → SUATTDRO 22:28 → EDINP 22:28 → 3W 22:45

== ENCOUNTER 2024-09-19 10:14 | Inpatient (IN) ==
[2024-09-19 10:46] LABS: Basophils # (auto) 0.12 K/uL (0.00-0.20); Basophils % (auto) 0.8 %; Eosinophils # (auto) 0.14 K/uL (0.00-0.50); Hematocrit (blood only) 43.8 % (42.0-52.0); Immature Granulocytes % (auto) 4.2 %; Lymphocytes # (auto) 2.42 K/uL (1.20-3.40); Mean Corpuscular Hemoglobin 32.7 pg (25.0-34.0); Mean Corpuscular Hgb Conc 34.2 g/dL (32.0-36.0); Mean Corpuscular Volume 95.4 fL (80.0-100.0); Mean Platelet Volume 9.2 fL (9.4-12.4); Monocytes # (auto) 0.72 K/uL (0.11-0.59); Monocytes % (auto) 5.1 %; Neutrophils # (auto) 10.23 K/uL (1.40-6.50); Neutrophils % (auto) 71.9 %; Platelet Count 425 K/uL (130-400); RDW Coefficient of Variation 13.4 % (11.5-14.5); RDW Standard Deviation 47.7 fL (36.4-46.3); Red Blood Count 4.59 M/uL (4.70-6.10); White Blood Count 14.23 K/ul (4.8-10.8)
[2024-09-19 11:09] LABS: Albumin Globulin Ratio 1.6 (0.9-2); Albumin Level 4.5 gm/dl (3.4-5.0); BUN Creatinine Ratio 6.7 (10-20); Bilirubin,Total 0.4 mg/dl (0.2-1.0); Calcium 8.4 mg/dl (8.6-10.3); Creatinine Clr Calc Pharmacy 139.9 ml/min; Globulin 2.9 gm/dl (2.5-4.0); Potassium 3.9 mmol/L (3.5-5.1); Total Protein 7.4 gm/dl (6.0-8.3)
--- NOTE | 2024-09-19 12:30 | History & Physical Report ---
<Statement entered by Rachel Florentino MD - 09/19/24 15:23> I have reviewed vital signs, chart notes, labs and imaging. I have personally seen, evaluated and examined the patient. I have also discussed the management of the patient with the IRMA and I agree with the exam findings documented in the history and physical examination and the documented assessment and plan unless otherwise stated below. When I saw Morgan today he remains postictal he is confused not aware of why he is in the ED cannot recall having seizures the last 2 days and wants to leave. His family at the bedside is helpful in persuading him that he needs to stay here right now. 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 He had some nausea after anesthesia which did not seem unusual however he had a lot of GI symptoms last couple days including nausea vomiting and he reports some diarrhea this morning no other sick contacts. He thinks he could have either vomited up or missed some Keppra doses. Otherwise he has not had any seizures since he was 16 on physical exam he is young man who is awake and mildly drowsy, mildly agitated he is verbal and follows commands. PERRL, face symmetric, speech intact, moves 4 extremities with equal strength, heart is regular no murmurs rubs or gallops lungs are clear to auscultation bilaterally no RRW, abdomen soft nontender nondistended, no rash except for acne on his back, lower extremities warm well-perfused no edema. No current seizure-like movements Unfortunately he remains confused and postictal and is starting to wake up, trying to leave therefore he has had some soft limb restraints on, also his family sitting at bedside with him we will admit him, consult neurology, obtain brain MRI, increased his antiepileptics as described in the note below. Date of Service September 19, 2024 Assessment & Plan (1) Seizure disorder: (2) Depression with anxiety: (3) Hypertension: (4) Lactic acidosis: Plan 33 yo M presents with breakthrough seizures with known h/o seizure disorder #Breakthrough seizures - Admit to pcu - NPO until no longer postictal and can safely swallow - Seizure/aspiration precautions - Activity: BR - VS per unit protocol - Case d/w Dr. Le, Valproic acid 1500mg IV x1 followed by 1000mg IV BID - Increase keppra to 1000mg and administer IV while postictal, can then convert to PO - Obtain MRI brain w/o contrast, seizure protocol - EEG ordered - Consult neurology, appreciate assistance - Elevated lactate 12.9, repeat 3.5 - IVF: LR @ 125 ml/hr x 2 liters - Obtain stat Mag and Phos levels - Pt attempting to leave, pick at IV, but is disoriented. Will give a dose of IV Ativan 1mg x1 and continue 4-point restraints. #Depression/anxiety - Continue venlafaxine, abilify, remeron, and gabapentin #HTN - Continue amlodipine Lovenox has been ordered for VTE ppx. AM labs ordered including valproic acid level. Will plan to advance diet and increase activity as pt is no longer postictal and can safely swallow and get out of bed. Above plan of care has been d/w Dr. Florentino who will also see and evaluate this patient. Further orders will be implemented as clinical course warrants. History of Present Illness Chief Complaint: Seizure Primary Care Provider: Rosaura Stewart MD Morgan is a 33 yo M with a pmhx of seizure disorder, depression, anxiety, and HTN who presents via EMS for breakthrough seizures. Per his mother, pt has been experiencing seizures since age 16. He is currently living with a best friend/roommate who has witnessed two seizures in the past two days. Pt is currently somnolent and not able to provide any history. History is obtained from family/friend and ER records. Patient brought to the ER yesterday after witnessed seizure. Underwent CT head which was unremarkable. Was loaded with a dose of IV Keppra 1000mg x1 and then discharged home on increased dose of Keppra. Previously had been on 500mg BID and was discharged on dose increase to 1000mg in AM and 500mg at HS. EMS was summoned today when roommate witnessed seizure activity and he was noted to have seized en route x 2 minutes where his oxygen saturation dropped into the 80s, nasal airway placed and he was put on 15L NRB. His O2 improved. He was postictal and incontinent of urine upon arrival. He required restraints which have since been discontinued. Case d/w neurology who recommended valproic acid loading dose of 1500mg IVx1. Pt has been referred to hospital medicine team for admission. Allergies Allergy/AdvReac Type Severity Reaction Status Date / Time No Known Allergies Allergy Verified 09/19/24 13:42 Home Medications Medication Instructions Recorded Confirmed Type aripiprazole 5 mg tablet 5 mg PO HS 05/09/22 09/19/24 History venlafaxine 150 mg 150 mg PO QAM 05/09/22 09/19/24 History capsule,extended release 24 hr venlafaxine 75 mg capsule,extended 75 mg PO QAM 05/09/22 09/19/24 History release 24 hr levetiracetam 500 mg tablet 500 mg PO BID #60 tabs 09/17/24 09/19/24 Rx (Keppra) amlodipine 10 mg tablet 10 mg PO QAM 09/18/24 09/19/24 History gabapentin 800 mg tablet 800 mg PO [facility] 09/18/24 09/19/24 History mirtazapine 45 mg tablet 45 mg PO HS 09/19/24 09/19/24 History ropinirole 0.5 mg tablet 0.5 mg PO HS 09/19/24 09/19/24 History Past Med/Surg History Problem List (Updated 09/19/24 @ 12:35 by Sharmin Leone PA-C) Lactic acidosis Seizure (Acute) Seizure disorder Last seizure ~2019 Follows /[facility] neuro Encounter for pre-operative examination Fracture, mandibular (Acute) Penile cyst Acne Depression with anxiety Hypertension (Acute) Medical History History of fracture 07/2024- mandibular Hx of acne HTN (hypertension) Depression with anxiety Surgical History Hx of oral surgery (09/10/24) Removal of Fixation Plates, Wires, & Screws(Not Applicable) - Jere Kay, DMD History of repair of laceration 08/19/24 [facility] ER suture repair (+ abx rx), left hand laceration repair after patient "punched a TV" Hx reviewed by general surgery per subsequent visit notes. No infectious disease-related symptoms per PAT RN phone interview 09/05/24. History of mandibular surgery (07/13/24) Open Reduction Mandible Fracture (has had 2 jaw surgeries) Family History Other No pertinent family history in first degree relatives Social History Smoking Status: Current every day smoker Tobacco Type: Cigarettes Cigarettes Per Day: 20 per day-advised; Second Hand Exposure: No; Do You Dip or Chew Tobacco: No; Hx Alcohol Use: Yes Alcohol type: beer Alcohol Intake Frequency: 2-3 x/Week Hx Substance Use: Yes (advised) Last Used Substance Other:: 09/04/24 Preferred Language: Lithuanian Communication Ability: Effective Visual Impairment: No Limitations [place] 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 Somnolent but no distress. EYES: EOMI. PERRLA. Anicteric. HENT: Moist mucous membranes. No cervical lymphadenopathy. LUNGS: Clear to auscultation bilaterally. No accessory muscle use. No W/R/R. CARDIOVASCULAR: Tachycardic ABDOMEN: Soft, non-tender and non-distended. BS normoactive x 4 quad. EXTREMITIES: No edema. Non-tender. Peripheral pulses +2/4. NEUROLOGIC: Postictal. SKIN: Warm, dry, intact. No rashes or lesions. Results & Data Results & Data Vital Signs (Past 12 Hours) Vital Signs Temp Pulse Resp BP Pulse Ox O2 Del Method 09/19/24 10:27 113 H 09/19/24 10:23 36.9 C 124 H 24 113/70 96 Room Air Laboratory Results 09/19/24 10:26 09/19/24 10:26 PG Care Time/CCT Total # of Minutes Spent Total Time Spent with Patient: Total time spent is greater than 50% in coordination of care (as documented) at patient's floor/unit and/or counseling patient: 78 minutes Coding Level of Care Code 19953 INT INP/OBS CARE 3/75MIN Diagnoses Seizure disorder G40.909 Depression with anxiety F41.8 Hypertension I10 Hypertension type: unspecified Lactic acidosis E87.20 (3) Hypertension Hypertension type: unspecified Qualified Code(s): I10 - Essential (primary) hypertension
[2024-09-19 12:44] LABS: Phosphorus 3.9 mg/dl (2.5-4.9)
[2024-09-19] MEDS: VALPROIC ACID SOLN 500 MG/10 ML UDC PO STA (12:55)
[2024-09-19 13:47] LABS: Amphetamines+Metham, Urine Neg (Neg); Barbiturates, Urine Neg (Neg); Benzodiazepine, Urine Neg (Neg); Cocaine, Urine Neg (Neg); Fentanyl, Urine Neg (Neg); MDMA (Ecstacy), Urine Neg (Neg); Marijuana, Urine Pos (Neg); Methadone, Urine Neg (Neg); Opiate, Urine Neg (Neg); Phencyclidine, Urine Neg (Neg)
[2024-09-19] MEDS: LORazepam 2 MG/1 ML VIAL IV STA (13:57)
[2024-09-19] MEDS: VALPROATE SOD 1,500 MG in DEXTROSE 5% 100 ML IV STA (13:58)
[2024-09-19] MEDS ORDERED: ONDANSETRON INJ 2 MG/ML 2 ML VIAL IV PRN (16:03)
[2024-09-19] MEDS ORDERED: LORazepam 2 MG/1 ML VIAL IV PRN (16:46)
[2024-09-19] MEDS: NICOTINE 21 MG/24 HR TDSY TD SCH (16:57)
[2024-09-19] MEDS: LACTATED RINGER'S 1,000 ML IV SCH (17:09)
--- NOTE | 2024-09-19 17:43 | Emergency Department Note ---
Impression & Plan Seizure disorder, Lactic acidosis ED Provider Note NAME: ELIJAH CORDERO AGE: 33 SEX: M : 1990 ARRIVES VIA: Ambulance INFORMANT: Patient, ED PROVIDER(S): Nadeem Mercado MD CHIEF COMPLAINT: Seizure HPI: This is a 33-year-old male presenting for recurrent seizure. Patient was seen here last night with with a single seizure. He had a CAT scan and patient blood work is reassuring. He was given IV Keppra load here. Patient is with his roommate he states that he felt unwell this morning. He wants take a shower and while in the shower he had a seizure. This is 5 full minutes that is witnessed by the roommate. She did catch him and he did not fall. EMS then arrived and he had a second grand mal seizure as per the report. He was given 2 mg IV Ativan. He did become hypoxic. Upon arrival here, patient states "any other history. States he has not had any other trauma, fevers or chills. ROS: See above HPI for pertinent positives & negatives. A total of 10 systems reviewed and were otherwise negative. PAST MEDICAL HISTORY: See Below PAST SURGICAL HISTORY: See Below FAMILY HISTORY: See Below SOCIAL HISTORY: See Below HOME MEDICATIONS: See Below ALLERGIES: See Below VITALS: See Below PHYSICAL EXAMINATION: General: Confused Head: Normocephalic and atraumatic Eyes: Normal inspection, extraocular muscles intact Ear, nose, throat: Normal external exam Neck: Normal range of motion Respiratory: lungs clear to auscultation bilaterally Cardiovascular: Regular rate/rhythm, no murmur GI: soft, nontender, no guarding or rebound Extremities: nontender, moves all extremities Neuro: Moves all extremities, no focal deficits, symmetric face Skin: Warm, dry, and intact MEDICAL DECISION MAKING: This is a 33-year-old male presenting for recurrent seizures patient has total of 3 total seizures in the past 30 hours. 2 seizures [id number]. Patient actively has IV Ativan has not seen since then. He given IV Keppra last night. - Lactic acid elevated at 12.9. Consistent with his seizure. Otherwise blood work is reassuring, showing stable leukocytosis. - As patient CT of head less than 24 hours ago, will defer for more past imaging including MRI brain patient - Discussed care with Dr. Le, neurologist, who recommends Depakote load, 1500 mg. - Discussed care with inpatient team, Maura Leone, under Dr. Florentino for admission Differential diagnosis: Status epilepticus, seizure, epilepsy, prolonged postictal period, Independent History obtained from: Roommate and mother Diagnostics interpreted by me: ECG: None Cardiac Monitoring: An order was placed for continuous cardiac monitoring. The monitor shows a rate of 113 with sinus tachycardia rhythm. Past Med/Surg History Problem List (Updated 09/19/24 @ 17:47 by Nadeem Mercado MD) Lactic acidosis (Acute) Seizure (Acute) Seizure disorder (Acute) Last seizure ~2019 [facility] Encounter for pre-operative examination Fracture, mandibular (Acute) Penile cyst Acne Depression with anxiety Hypertension (Acute) Medical History History of fracture 07/2024- mandibular Hx of acne HTN (hypertension) Depression with anxiety Surgical History Hx of oral surgery (09/10/24) Removal of Fixation Plates, Wires, & Screws(Not Applicable) - Jere Kay, DMD History of repair of laceration 08/19/24 [facility] ER suture repair (+ abx rx), left hand laceration repair after patient "punched a TV" Hx reviewed by general surgery per subsequent visit notes. No infectious disease-related symptoms per PAT RN phone interview 09/05/24. History of mandibular surgery (07/13/24) Open Reduction Mandible Fracture (has had 2 jaw surgeries) Family History Other No pertinent family history in first degree relatives Social History Smoking Status: Current every day smoker Tobacco Type: Cigarettes Cigarettes Per Day: 20 per day-advised; Second Hand Exposure: No; Do You Dip or Chew Tobacco: No; Hx Alcohol Use: Yes Alcohol type: beer Alcohol Intake Frequency: 2-3 x/Week Hx Substance Use: Yes (advised) Last Used Substance Other:: 09/04/24 Preferred Language: Burkinan Communication Ability: Effective Visual Impairment: No Limitations Precision Inspector Required: Voice and No Beliefs That Will Affect Care: None marital status: Single Current Living Situation: Other Current Living Situation Comment: lives with Anjelica- reports Anjelica is a friend Feels Safe at Home: Yes caffeine: Yes Dental Care, Regularly: Yes Seatbelt Use: always Assistive Devices: Denture - Upper Allergies Allergies Allergy/AdvReac Type Severity Reaction Status Date / Time No Known Allergies Allergy Verified 09/19/24 13:42 Home Meds Home Medications Medication Instructions Recorded Confirmed aripiprazole 5 mg tablet 5 mg PO HS 05/09/22 09/19/24 venlafaxine 150 mg 150 mg PO [facility] 05/09/22 09/19/24 capsule,extended release 24 hr venlafaxine 75 mg capsule,extended 75 mg PO [facility] 05/09/22 09/19/24 release 24 hr amlodipine 10 mg tablet 10 mg PO [facility] 09/18/24 09/19/24 gabapentin 800 mg tablet 800 mg PO [facility] 09/18/24 09/19/24 mirtazapine 45 mg tablet 45 mg PO HS 09/19/24 09/19/24 ropinirole 0.5 mg tablet 0.5 mg PO 09/19/24 09/19/24 Previous Rx's Medication Instructions Recorded levetiracetam 500 mg tablet 500 mg PO BID #60 tabs 09/17/24 (Keppra) Results & Data (ED) Vital Signs Vital Signs - 24 hr 09/19/24 10:23 09/19/24 10:27 Temperature 36.9 C Temperature Source Axillary Pulse Rate 124 H 113 H Respiratory Rate 24 Respiratory Effort / Characteristics Non-Labored Spontaneous Respiratory Depth Normal Respiratory Pattern Regular Blood Pressure 113/70 Blood Pressure Mean 84 Pulse Oximetry 96 Oxygen Delivery Method Room Air Sepsis Recent Fever Within 48 Hours No Sepsis New/Unexplained Change in Mental Status No Sepsis Action Taken by Nursing No Action Required Laboratory Data 09/19/24 10:26 09/19/24 10:26 Lab Results 09/19/24 Range/Units 10:26 WBC 14.23 H (4.8-10.8) K/ul RBC 4.59 L (4.70-6.10) M/uL Hgb 15.0 (14.0-18.0) g/dl Hct 43.8 (42.0-52.0) % MCV 95.4 (80.0-100.0) fL MCH 32.7 (25.0-34.0) pg MCHC 34.2 (32.0-36.0) g/dL RDW Std Deviation 47.7 H (36.4-46.3) fL RDW Coeff of Rachael 13.4 (11.5-14.5) % Plt Count 425 H (130-400) K/uL MPV 9.2 L (9.4-12.4) fL Immature Gran % (Auto) 4.2 % Neut % (Auto) 71.9 % Lymph % (Auto) 17.0 % Humphreys % (Auto) 5.1 % Eos % (Auto) 1.0 % Baso % (Auto) 0.8 % Neut # (Auto) 10.23 H (1.40-6.50) K/uL Lymph # (Auto) 2.42 (1.20-3.40) K/uL Humphreys # (Auto) 0.72 H (0.11-0.59) K/uL Eos # (Auto) 0.14 (0.00-0.50) K/uL Baso # (Auto) 0.12 (0.00-0.20) K/uL Immature Gran # (Auto) 0.60 H (0.01-0.20) K/uL Sodium 137 (136-145) mmol/L Potassium 3.9 (3.5-5.1) mmol/L Chloride 104 (98-107) mmol/L Carbon Dioxide 14 L (21-32) mmol/L Anion Gap 19 H (3-11) BUN 6 (6-23) mg/dl Creatinine 0.89 (0.6-1.4) mg/dl Est Cr Clr Drug Dosing 139.9 ml/min eGFR 115.32 BUN/Creatinine Ratio 6.7 L (10-20) Glucose 193 H (70-99(Fasting)) mg/dl Lactate 12.9 H* (0.4-2.0) mmol/L Calcium 8.4 L (8.6-10.3) mg/dl Phosphorus 3.9 (2.5-4.9) mg/dl Magnesium 2.0 (1.7-2.4) mg/dl Total Bilirubin 0.4 (0.2-1.0) mg/dl AST 39 (13-39) U/L ALT 34 (7-52) U/L Alkaline Phosphatase 137 H (34-104) U/L Total Protein 7.4 (6.0-8.3) gm/dl Albumin 4.5 (3.4-5.0) gm/dl Globulin 2.9 (2.5-4.0) gm/dl Albumin/Globulin Ratio 1.6 (0.9-2) Administered Medications Lactated Ringer's (Lr) 1,000 mls @ 125 mls/hr IV .Q8H SHAMEKA Stop: 09/20/24 08:02 Last Infusion: 09/19/24 17:27 Dose: 0 mls/hr Documented By: Admin: 09/19/24 17:09 Dose: 125 mls/hr Documented By: ELMO Nicotine (Nicotine 21 Mg/24 Hr Tdsy) 1 patch TD QAM SHAMEKA Stop: 10/19/24 15:14 Last Admin: 09/19/24 16:57 Dose: 1 patch Documented By: ELMO Discontinued Medications Valproic Acid 1,500 mg/ (Dextrose) 115 mls @ 115 mls/hr IV NOW STA Stop: 09/19/24 12:44 Last Infusion: 09/19/24 15:05 Dose: Infused Documented By: Admin: 09/19/24 13:58 Dose: 115 mls/hr Documented By: MMF Lorazepam (Lorazepam 2 Mg/1 Ml Vial) 1 mg IV NOW STA Stop: 09/19/24 13:40 Last Admin: 09/19/24 13:57 Dose: 1 mg Documented By: RAMILA Valproic Acid (Valproic Acid Soln 500 Mg/10 Ml Udc) 1,500 mg PO NOW STA Stop: 09/19/24 12:30 Last Admin: 09/19/24 12:55 Dose: Not Given Documented By: MMF Discharge Plan Visit Data Chief Complaint: Seizure Stated Complaint: SEIZURE ED Provider: Nadeem Mercado Discharge Problem: Seizure disorder, Lactic acidosis Patient Disposition: Admitted As Inpatient Condition: Fair Discharge Instructions Interventions: ED Discharge Assessment Last Done: 09/19/24 15:04
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
[2024-09-19] MEDS ORDERED: ACETAMINOPHEN 500 MG TAB PO PRN (19:45)
[2024-09-19] MEDS: MIRTAZAPINE SOLTAB 15 MG PO SCH (20:08)
[2024-09-19] MEDS: GABAPENTIN 800 MG TAB PO SCH (20:10)
[2024-09-19] MEDS: levETIRAcetam 500 MG/5 ML VIAL IV SCH (20:10)
[2024-09-19] MEDS: VALPROATE SOD 1,000 MG in DEXTROSE 5% 100 ML IV SCH (20:11)
[2024-09-19] MEDS: rOPINIRole HCL 0.25 MG TABLET PO SCH (20:11)
[2024-09-19] MEDS: ARIPiprazole 5 MG TAB PO SCH (20:11)
--- NOTE | 2024-09-20 00:33 | Magnetic Resonance Report ---
Exam(s): MRI OTHER Without Contrast MR brain seizure wo EXAM: MR Head Without Intravenous Contrast CLINICAL HISTORY: Reason for exam: seizure protocol. TECHNIQUE: Magnetic resonance images of the head/brain without intravenous contrast in multiple planes. COMPARISON: Prior head CT from September 18, 2024. FINDINGS: This study is limited secondary to motion artifact. Brain: There is increased T2/FLAIR signal and mild atrophy within the left hippocampus with loss of normal trilaminar architecture. No mass. No hemorrhage. No acute infarct. The flow voids at the base the brain are intact. Ventricles: Unremarkable. No ventriculomegaly. Bones/joints: Unremarkable. No acute fracture. Prominent cervical lymph nodes. Sinuses: Unremarkable as visualized. No acute sinusitis. Mastoid air cells: Unremarkable as visualized. No mastoid effusion. Orbits: Unremarkable as visualized. 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 Electronically signed by: Vaishnavi Caldwell MD 09/20/24 00:32 AM
[2024-09-20 06:51] LABS: Basophils # (auto) 0.06 K/uL (0.00-0.20); Basophils % (auto) 0.6 %; Eosinophils # (auto) 0.15 K/uL (0.00-0.50); Eosinophils % (auto) 1.5 %; Hematocrit (blood only) 39.4 % (42.0-52.0); Hemoglobin 14.1 g/dl (14.0-18.0); Immature Granulocytes # (auto) 0.18 K/uL (0.01-0.20); Immature Granulocytes % (auto) 1.8 %; Lymphocytes # (auto) 2.29 K/uL (1.20-3.40); Lymphocytes % (auto) 23.3 %; Mean Corpuscular Hemoglobin 33.1 pg (25.0-34.0); Mean Corpuscular Hgb Conc 35.8 g/dL (32.0-36.0); Mean Corpuscular Volume 92.5 fL (80.0-100.0); Monocytes # (auto) 0.94 K/uL (0.11-0.59); Monocytes % (auto) 9.6 %; Neutrophils % (auto) 63.2 %; Platelet Count 301 K/uL (130-400); RDW Coefficient of Variation 13.5 % (11.5-14.5); RDW Standard Deviation 45.9 fL (36.4-46.3); Red Blood Count 4.26 M/uL (4.70-6.10); White Blood Count 9.82 K/ul (4.8-10.8)
[2024-09-20 07:07] LABS: BUN Creatinine Ratio 5.8 (10-20); Calcium 8.6 mg/dl (8.6-10.3); Creatinine Clr Calc Pharmacy 95.2 ml/min; Potassium 3.4 mmol/L (3.5-5.1)
[2024-09-20] MEDS: ENOXAPARIN INJ 40 MG/0.4 ML SYR SQ SCH (08:35)
[2024-09-20] MEDS: VENLAFAXINE HCL XR 150 MG CAPXR PO SCH (08:35)
[2024-09-20] MEDS: VENLAFAXINE HCL XR 75 MG CAPXR PO SCH (08:35)
[2024-09-20] MEDS: amLODIPine BESYLATE 5 MG TAB PO SCH (08:35)
--- NOTE | 2024-09-20 11:14 | Electroencephalogram ---
EEG Procedure Note Date of Service September 20, 2024 Start / End Times Start Time: 9:32 AM End Time: 9:52 AM Referring Physician Chadd History Seizure disorder, focal onset seizures with secondary generalization Home Medication List Medication Instructions Recorded Confirmed Type aripiprazole 5 mg tablet 5 mg PO 05/09/22 09/19/24 History venlafaxine 150 mg 150 mg PO [facility] 05/09/22 09/19/24 History capsule,extended release 24 hr venlafaxine 75 mg capsule,extended 75 mg PO [facility] 05/09/22 09/19/24 History release 24 hr levetiracetam 500 mg tablet 500 mg PO BID #60 tabs 09/17/24 09/19/24 Rx (Keppra) amlodipine 10 mg tablet 10 mg PO [facility] 09/18/24 09/19/24 History gabapentin 800 mg tablet [address] [facility] 09/18/24 09/19/24 History mirtazapine 45 mg tablet 45 mg PO 09/19/24 09/19/24 History ropinirole 0.5 mg tablet 0.5 mg PO 09/19/24 09/19/24 History Inpatient Medication List Amlodipine Besylate (Amlodipine Besylate 5 Mg Tab) 10 mg PO [facility] Stop: 10/20/24 08:59 Last Admin: 09/20/24 08:35 Dose: 10 mg Documented By: ELMO Aripiprazole (Aripiprazole 5 Mg Tab) 5 mg PO [facility] Stop: 10/19/24 20:59 Last Admin: 09/19/24 20:11 Dose: 5 mg Documented By: MARCIE Enoxaparin Sodium (Enoxaparin Inj 40 Mg/0.4 Ml Syr) 40 mg SQ [facility] Stop: 10/20/24 08:59 Last Admin: 09/20/24 08:35 Dose: 40 mg Documented By: ELMO Gabapentin (Gabapentin 800 Mg Tab) 800 mg PO [facility] Stop: 10/19/24 20:59 Last Admin: 09/20/24 08:35 Dose: 800 mg Documented By: Admin: 09/19/24 20:10 Dose: 800 mg Documented By: MARCIE Valproic Acid 1,000 mg/ (Dextrose) 110 mls @ 110 mls/hr IV BID [facility] Stop: 10/19/24 20:59 Last Infusion: 09/20/24 10:46 Dose: Infused Documented By: Admin: 09/20/24 08:34 Dose: 110 mls/hr Documented By: Infusion: 09/19/24 22:00 Dose: Infused Documented By: Infusion: 09/19/24 21:30 Dose: 110 mls/hr Documented By: Infusion: 09/19/24 20:44 Dose: 0 mls/hr Documented By: Admin: 09/19/24 20:11 Dose: 110 mls/hr Documented By: MARCIE Levetiracetam (Levetiracetam 500 Mg/5 Ml Vial) 1,000 mg IV Q12H [facility] Stop: 10/19/24 20:59 Last Admin: 09/20/24 08:35 Dose: 1,000 mg Documented By: Admin: 09/19/24 20:10 Dose: 1,000 mg Documented By: MARCIE Mirtazapine (Mirtazapine Soltab 15 Mg) 45 mg PO HS [facility] Stop: 10/19/24 20:59 Last Admin: 09/19/24 20:08 Dose: 45 mg Documented By: MARCIE Miscellaneous (Remove Nicoderm Patch) 1 each N/A DAILY@0859 [facility] Stop: 10/20/24 08:58 Last Admin: 09/20/24 08:33 Dose: 1 each Documented By: ELMO Nicotine (Nicotine 21 Mg/24 Hr Tdsy) 1 patch TD QAM [facility] Stop: 10/19/24 15:14 Last Admin: 09/20/24 08:33 Dose: 1 patch Documented By: Admin: 09/19/24 16:57 Dose: 1 patch Documented By: ELMO Ropinirole HCl (Ropinirole Hcl 0.25 Mg Tablet) 0.5 mg PO HS [facility] Stop: 10/19/24 20:59 Last Admin: 09/19/24 20:11 Dose: 0.5 mg Documented By: MARCIE Venlafaxine HCl (Venlafaxine Hcl Xr 75 Mg Capxr) 75 mg PO QAM [facility] Stop: 10/20/24 08:59 Last Admin: 09/20/24 08:35 Dose: 75 mg Documented By: ELMO Venlafaxine HCl (Venlafaxine Hcl Xr 150 Mg Capxr) 150 mg PO QAM [facility] Stop: 10/20/24 08:59 Last Admin: 09/20/24 08:35 Dose: 150 mg Documented By: ELMO Discontinued Medications Valproic Acid 1,500 mg/ (Dextrose) 115 mls @ 115 mls/hr IV NOW STA Stop: 09/19/24 12:44 Last Infusion: 09/19/24 15:05 Dose: Infused Documented By: Admin: 09/19/24 13:58 Dose: 115 mls/hr Documented By: RAMILA Lactated Ringer's (Lr) 1,000 mls @ 125 mls/hr IV .Q8H [facility] Stop: 09/20/24 08:02 Last Infusion: 09/20/24 08:38 Dose: Infused Documented By: Admin: 09/20/24 02:03 Dose: 125 mls/hr Documented By: Infusion: 09/20/24 02:03 Dose: Infused Documented By: Infusion: 09/19/24 21:30 Dose: 125 mls/hr Documented By: Infusion: 09/19/24 20:44 Dose: 0 mls/hr Documented By: Infusion: 09/19/24 17:35 Dose: 125 mls/hr Documented By: Infusion: 09/19/24 17:27 Dose: 0 mls/hr Documented By: Admin: 09/19/24 17:09 Dose: 125 mls/hr Documented By: ELMO Lorazepam (Lorazepam 2 Mg/1 Ml Vial) 1 mg IV NOW STA Stop: 09/19/24 13:40 Last Admin: 09/19/24 13:57 Dose: 1 mg Documented By: RAMILA Valproic Acid (Valproic Acid Soln 500 Mg/10 Ml Udc) 1,500 mg PO NOW STA Stop: 09/19/24 12:30 Last Admin: 09/19/24 12:55 Dose: Not Given Documented By: RAMILA Description This is a 21 electrode EEG with a single channel dedicated to limited EKG. The electrodes were placed in accordance with the International 10-20 system. There is a posterior dominant rhythm of 10 Hz which is symmetrically distributed and attenuates with eye opening. There is a normal anterior to posterior organization. Photic stimulation is unremarkable. Hyperventilation is not performed. There is intermittent left mid temporal slowing throughout the study. There was attenuation of the background rhythm in the emergence of vertex waves in the mid to latter part of the study. An intermittent left temporal spike wave abnormality was observed during sleep. Interpretation Abnormal awake/sleepy EEG with evidence of a left temporal seizure focus. 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 [facility] EEG Procedure Codes Indication for Procedure (1) Seizure disorder: Neurology Neurology: 16361 EEG include record awake & sleepy
[2024-09-20] MEDS ORDERED: Nursing to Pharmacy Communication SCH (12:45)
[2024-09-20] MEDS: POTASSIUM CHLORIDE CRTAB 20 MEQ TABCR PO ONE (13:35)
[2024-09-20] MEDS: POTASSIUM CHLORIDE CRTAB 20 MEQ TABCR PO STA (13:37)
[2024-09-20 15:15] VITALS: BP 148/78; RESP 20; TEMP 97.9; O2SAT 98
--- NOTE | 2024-09-20 17:53 | Neurology Progress Note ---
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 Continue with divalproex DR 1000 mg twice daily. Continue with levetiracetam 1000 mg twice daily. Patient should follow-up in neurology clinic in 2 to 3 weeks after discharge. Going forward, may be able to reduce or taper off levetiracetam. No driving for now. Additional counseling given to the patient and his significant other regarding restriction of high risk activities, swimming and bathing alone, ladders, unrestricted heights, avoidance of alcohol. Admission and Anticipated Discharge Date Admission Date: September 19, 2024 Subjective Follow-up regarding seizures Patient feeling much improved, more alert, interactive, no headache, focal weakness, or further seizure episodes. He has been tolerating Depakote and levetiracetam, subsequently switched from IV to tablets. Patient's EEG completed this morning revealed intermittent left mid temporal slowing and a left temporal spike wave abnormality during sleep. Brain MRI completed yesterday revealed findings potentially consistent with left mesial temporal sclerosis. I independently reviewed these images and agree with this finding. Valproic acid level today was 73. Results & Data Vital Signs (Past 12 Hours) Vital Signs Temp Pulse Pulse Resp BP Pulse Ox O2 Del Method 09/20/24 15:44 87 09/20/24 15:15 36.6 C 97 H 20 148/78 H 98 Room Air 09/20/24 12:35 36.8 C 96 H 18 151/96 H 97 Room Air 09/20/24 07:57 36.5 C 98 H 18 149/99 H 96 Room Air 09/20/24 07:12 100 H Exam (Neuro) Neurologic: Oriented to:: Person, Place and Time Memory: Short Term Intact and Remote Intact Attention: Span Intact and Concentration Intact Speech Fluency: negative Dysarthria or Dysfluency Speech Aphasia: negative Aphasia Fund of Knowledge: Current Events, Past History and Vocabulary Cranial Nerves: Normal II, III, IV, , V, VII, VIII, IX, X, XI and XII Motor Strength: Normal Lower Extremities and Normal Upper Extremities Muscle Bulk/Involuntary Movements: No Involuntary Movements Coordination: Normal Gait: Normal Station and Gait Coding Level of Care Code 51673 SUB INP/OBS CARE 2/35MIN Diagnoses Temporal lobe epilepsy G40.109 Time Spent (min) 35 Comment Total time includes patient contact, chart review, counseling, note preparation
[2024-09-20 18:07] VITALS: PULSE 97
--- NOTE | 2024-09-20 18:42 | Discharge Summary ---
Discharge Summary Date of Service September 20, 2024 Principal Dx & Hospital Course #1 = Principal Diagnosis (1) Seizure: (2) Temporal lobe epilepsy: (3) Depression with anxiety: (4) Hypertension: Plan 33 yo M presents with breakthrough seizures with known seizure disorder # seizures, temporal lobe epilepsy had gone many many years without a seizure maintained on Keppra 500 mg twice daily treated in ED for seizure day before admission with IV Keppra and Keppra dose was increased to 1000 mg / 500 mg 2 more seizures prior to presentation in the ED on 09/19 loaded on IV Keppra and IV valproic acid in the ED per advice of consulting neurologist 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 Le today - recommended discharge on increased dose of Keppra 1000 mg p.o. twice daily and divalproex 1000 mg twice daily, follow-up in neurology clinic in 2 to 3 weeks seizure precautions including no driving were discussed, recommended avoidance of alcohol and THC which could be quite hazardous with his seizure and mental health medications. #Depression/anxiety - Continue venlafaxine, abilify, remeron, and gabapentin #HTN - Continue amlodipine Notes For Next Care Provider follow-up in neurology clinic 2 to 3 weeks Medication Changes From Visit Keppra increased Keppra increased, started divalproex Admission HPI Per Admitting Provider Morgan is a 33 yo M with a pmhx of seizure disorder, depression, anxiety, and HTN who presents via EMS for breakthrough seizures. Per his mother, pt has been experiencing seizures since age 16. He is currently living with a best friend/ roommate who has witnessed two seizures in the past two days. Pt is currently somnolent and not able to provide any history. History is obtained from family/friend and ER records. Patient brought to the ER yesterday after witnessed seizure. Underwent CT head which was unremarkable. Was loaded with a dose of IV Keppra 1000mg x1 and then discharged home on increased dose of Keppra. Previously had been on 500mg BID and was discharged on dose increase to 1000mg in AM and 500mg at HS. EMS was summoned today when roommate witnessed seizure activity and he was noted to have seized en route x 2 minutes where his oxygen saturation dropped into the 80s, nasal airway placed and he was put on 15L NRB. His O2 improved. He was postictal and incontinent of urine upon arrival. He required restraints which have since been discontinued. Nick d/w neurology who recommended valproic acid loading dose of 1500mg IVx1. Pt has been referred to hospital medicine team for admission. Discharge Exam Last 24h vitals reviewed GEN: no acute distress, sitting in bed HEENT: pupils equal, sclerae anicteric, moist MM RESP: normal WOB, CTAB CV: reg no mrg ABD: soft/nt/nd +BT : no benson SKIN: warm and dry, no generalized rashes NEURO: AOx person, place, and situation. Face symmetric, speech normal, moves 4 ext spontaneously and equally Discharge Plan Discharge Items Patient Disposition: Home - Self-Care Reason For Visit: SEIZURE Discharge Diagnosis: Seizures Condition on Discharge: Fair Activity: Resume your previous activity Non-emergency contact: Primary Care Provider and Neurologist Call non-emergency contact if: you have any medication questions and your symptoms worsen Follow-up/Referrals: Rosaura Stewart MD [Primary Care Provider] - Dariela Romero PA-C [Physician Cooker Mechanic] - Diet: Regular Addtl Attending Provider Instructions: You were treated for increase in seizures Testing with EEG and brain MRI confirms a type of seizure disorder called temporal lobe epilepsy Your seizure medications were adjusted -keppra increased -added valproate (depakote) -you may be able to discontinue one of these in the future if no more seizures Follow up in neurology clinic in 2-[address] Mimi Connolly or Dr. Pastor I strongly advise avoiding alcohol and cannabis because of your seizures and interactions with your seizure and mental health medicines No driving until cleared by neurology Avoid high risk activities like swimming and bathing alone, ladders, unrestricted heights It was a pleasure taking care of you in the hospital, Rachel Florentino MD Pending Studies at Discharge: No Stand-Alone Forms[facility] Medications and DC Order Prescriptions: New divalproex 500 mg Tablet,Delayed Release (Dr/Ec) 1,000 mg PO BID Qty: 120 0RF levetiracetam [Keppra] 1,000 mg tablet 1,000 mg PO BID Qty: 60 0RF Continued venlafaxine 75 mg capsule,extended release 24hr 75 mg PO QAM Rx Instructions: TOTAL DOSE 225 MG--TAKES WITH 150 MG CAP. venlafaxine 150 mg capsule,extended release 24hr 150 mg PO QAM Rx Instructions: TOTAL DOSE 225 MG-- TAKES WITH 75 MG CAP. aripiprazole 5 mg tablet 5 mg PO HS Rx Instructions: TOTAL DOSE 7 MG--TAKES WITH 2 MG TAB. gabapentin 800 mg tablet 800 mg PO [facility] MDD 2400mg/24hr Rx Instructions: May take additional 800mg during the day if needed amlodipine 10 mg tablet 10 mg PO QAM ropinirole 0.5 mg tablet 0.5 mg PO HS mirtazapine 45 mg tablet 45 mg PO HS Discontinued levetiracetam [Keppra] 500 mg tablet 500 mg PO BID Qty: 60 11RF Hold Instructions: Resume on 08/11/24. hold until able to take whole tablets, use liquid until then Discharge Orders: Discharge Order (Routine); Ordered 09/20/24 Ordered By: Rachel Umana/Other Patient Handouts: Discharge Instructions for Epilepsy Admission Data Admit Date/Time: 09/19/24 12:20 Attending Provider: Rachel Florentino Admit Provider: Rachel Florentino Primary Care Provider: Rosaura Stewart Other Providers: Rachel Florentino; Kenny Le Hospital Stay Data Consultations 09/19/24 12:14 ED Decision to Admit Stat 09/19/24 16:03 Consult Neurology Routine Diagnostic Imagining Performed 09/19/24 12:20 MR brain seizure wo con Routine Pending Results Patient Have Any Pending Studies at Discharge: No Discharge Instructions Given to Patient (Per Discharging Provider) You were treated for increase in seizures Testing with EEG and brain MRI confirms a type of seizure disorder called temporal lobe epilepsy Your seizure medications were adjusted -keppra increased -added valproate (depakote) -you may be able to discontinue one of these in the future if no more seizures Follow up in neurology clinic in 2-[address] Mimi Connolly or Dr. Pastor I strongly advise avoiding alcohol and cannabis because of your seizures and interactions with your seizure and mental health medicines No driving until cleared by neurology Avoid high risk activities like swimming and bathing alone, ladders, unrestricted heights It was a pleasure taking care of you in the hospital, Rachel Florentino MD Total Time Total Time Spent Total Time Spent (In Minutes): I personally spent: 40 minutes today on clinical care activities including: reviewing chart notes and vital signs reviewing labs reviewing studies discussion with fitness consultant(s) examining and counseling the patient counseling the patient's family writing orders writing prescriptions, discharge instructions documentation Coding Level of Care Code 62187 INP/OBS DISCH >30 MIN Diagnoses Seizure R56.9 Temporal lobe epilepsy G40.109 Depression with anxiety F41.8 Hypertension I10 Hypertension type: unspecified
[2024-09-20] MEDS ORDERED: DIVALPROEX DELAY RELEASE 500 MG TAB PO SCH (21:00)
[2024-09-20] MEDS ORDERED: levETIRAcetam ORAL SOLN 100MG/ML PO SCH (21:00)
== END 2024-09-20 18:20 | disposition home or self-care (01) | DRG 101 ==
LOC: ED 10:14 → 2S 12:20